=== PATIENT | female | born 1985 | race Two or more races ===

== ENCOUNTER 2023-06-20 09:56 | Outpatient (CLI) | payer OTHER | END 2023-06-20 10:24 | disposition home or self-care (01) | LOC: SONOGRAMA 09:56 | PROVIDERS: ATTEND Pathology Anatomic Pathology & Clinical Pathology | DX: C73 Malignant neoplasm of thyroid gland (principal); D44.0 Neoplasm of uncertain behavior of thyroid gland; D36.0 Benign neoplasm of lymph nodes; E07.9 Disorder of thyroid, unspecified ==

== ENCOUNTER 2023-08-08 05:30 | Inpatient (IN) | payer OTHER ==
[~2023-08-08] VITALS: Ht 172.7 cm; Wt 85.3 kg
[2023-08-09] MEDS ORDERED: SYNTHROID50 MCG PO (08:26)
== END 2023-08-09 13:58 | disposition home or self-care (01) | DRG 627 ==
LOC: CIR.AMB 05:30 → SURH 18:56
PROVIDERS: ADMIT Otolaryngology; ATTEND Otolaryngology
PROC: 0GTK0ZZ Resection of Thyroid Gland, Open Approach (ICD-10-PCS; 2023-08-08)
PROC: 07T20ZZ Resection of Left Neck Lymphatic, Open Approach (ICD-10-PCS; 2023-08-08)
PROC: 07T10ZZ Resection of Right Neck Lymphatic, Open Approach (ICD-10-PCS; 2023-08-08)
PROC: 0GTK0ZZ Resection of Thyroid Gland, Open Approach (ICD-10-PCS; principal; 2023-08-08 12:15)
DX: C73 Malignant neoplasm of thyroid gland (principal); Z20.822 Contact with and (suspected) exposure to COVID-19